=== PATIENT | female | born 1965 | race Caucasian/White ===

== ENCOUNTER → 2018-10-05 | Outpatient (CLI) | payer BC ==
[2018-10-05 15:17] LABS: Basophils # (auto) 0.1 uL; Basophils % (auto) 1.1 % (0.0-2.0); Eosinophils # (auto) 0.4 uL; Eosinophils % (auto) 4.6 % (0.0-7.0); Hematocrit 42.1 % (36.0-46.0); Hemoglobin 14.1 g/dL (12.2-16.2); Lymphocytes % (auto) 25.5 % (10.0-50.0); Mean Corpuscular Hemoglobin 30.7 pg (28.0-32.0); Mean Corpuscular Hgb Conc. 33.5 g/dL (32.0-36.0); Mean Corpuscular Volume 91.6 fL (80.0-100.0); Monocytes # (auto) 0.4 uL; Monocytes % (auto) 5.7 % (0.0-12.0); Neutrophils % (auto) 63.1 % (37.0-80.0); Platelet Count (auto) 317 10^3/uL (140-450); Red Blood Cells 4.59 10^6/uL (4.0-5.20); Red Cell Distribution Width 13.6 % (11.8-14.3); White Blood Cell 7.9 10^3/uL (4.4-10.8)
[2018-10-05 15:22] LABS: INR < 0.93 (0.9-1.15); Partial Thromboplastin Time 25.4 sec (23.64-32.05)
[2018-10-05 15:23] LABS: Urine Bacteria FEW /hpf (None Seen); Urine Blood Negative /uL (Negative); Urine Specific Gravity 1.006 (1.001-1.035); Urine WBC 1 /hpf (0 - 5)
[2018-10-05 15:25] LABS: Albumin 3.6 g/dL (3.4-5.0); Calcium 8.9 mg/dL (8.5-10.1); Potassium 3.4 mmol/L (3.5-5.1)
[2018-10-05 15:28] LABS: BUN/Creatinine Ratio 15.8; Bilirubin, Total 0.1 mg/dL (0.2-1.0)
[2018-10-06 07:45] LABS: Cholesterol 237 mg/dL (< 200); HDL Cholesterol 88 mg/dL (40-59); LDL Cholesterol 113 mg/dL (< 100); Triglycerides 167 mg/dL (< 150)
== END | disposition home or self-care (01) ==
LOC: LAB 14:37
PROVIDERS: ATTEND Internal Medicine Nephrology
DX: N39.0 Urinary tract infection, site not specified (principal); K92.1 Melena; N12 Tubulo-interstitial nephritis, not specified as acute or chronic
CPT/HCPCS: 36415; 80053; 80061; 81001; 84443; 85025; 85610; 85652; 85730; 87040; 87086

== ENCOUNTER 2018-10-12 20:14 | Inpatient (IN) | payer BC ==
[~2018-10-12] VITALS: Ht 162.6 cm; Wt 98.0 kg
[2018-10-12 21:22] LABS: Basophils # (auto) 0.1 uL; Basophils % (auto) 1.2 % (0.0-2.0); Eosinophils # (auto) 0.4 uL; Eosinophils % (auto) 5.9 % (0.0-7.0); Hematocrit 41.8 % (36.0-46.0); Hemoglobin 13.9 g/dL (12.2-16.2); Lymphocytes # (auto) 1.5 uL; Lymphocytes % (auto) 19.8 % (10.0-50.0); Mean Corpuscular Hemoglobin 30.6 pg (28.0-32.0); Mean Corpuscular Hgb Conc. 33.2 g/dL (32.0-36.0); Mean Corpuscular Volume 92.2 fL (80.0-100.0); Monocytes # (auto) 0.6 uL; Monocytes % (auto) 7.3 % (0.0-12.0); Neutrophils % (auto) 65.8 % (37.0-80.0); Platelet Count (auto) 308 10^3/uL (140-450); Red Blood Cells 4.53 10^6/uL (4.0-5.20); Red Cell Distribution Width 13.7 % (11.8-14.3); White Blood Cell 7.5 10^3/uL (4.4-10.8)
[2018-10-12 21:38] LABS: Albumin 3.4 g/dL (3.4-5.0); Amylase 43 U/L (25-115); Anion Gap 9 (5-15); Blood Urea Nitrogen 17 mg/dL (7-18); Calcium 8.8 mg/dL (8.5-10.1); Carbon Dioxide 26 mmol/L (21-32); Chloride 106 mmol/L (98-107); Glucose 129 mg/dL (74-106); Lipase 200 U/L (73-393); Magnesium 2.5 mg/dL (1.6-2.6); Potassium 3.7 mmol/L (3.5-5.1); Sodium 141 mmol/L (136-145)
[2018-10-12 21:45] LABS: Alanine Aminotransferase 18 U/L (13-56); Alkaline Phosphatase 82 U/L (45-117); Aspartate Aminotransferase 14 U/L (15-37); BUN/Creatinine Ratio 20.7; Bilirubin, Total 0.2 mg/dL (0.2-1.0); GFR African American 95 mL/min; GFR Non-African American 78 mL/min; Total Protein 7.7 g/dL (6.4-8.2)
[2018-10-12 21:53] LABS: INR 0.95 (0.9-1.15); Partial Thromboplastin Time 26.6 sec (23.64-32.05)
[2018-10-12 23:57] LABS: Urine Bacteria FEW /hpf (None Seen); Urine Blood Negative /uL (Negative); Urine Mucus FEW (None Seen); Urine Specific Gravity 1.031 (1.001-1.035); Urine WBC 1 /hpf (0 - 5)
[2018-10-13] MEDS ORDERED: HYDROcodone-ACET 5/325MG TAB PO PRN (00:30)
[2018-10-13] MEDS ORDERED: TEMAZEPAM 15 MG CAP PO PRN (00:30)
[2018-10-13] MEDS ORDERED: ACETAMINOPHEN 325 MG TAB PO PRN (00:30)
[2018-10-13] MEDS ORDERED: ONDANSETRON HCL 4 MG/2 ML VIAL IV PRN (00:30)
--- NOTE | 2018-10-13 00:55 | NUR ---
Admission Note Pt admitted to room 272-B in stable cond. Pt oriented to room and procedures and POC discussed with pt. Pt verbalizes understanding. Pt hx also taken at this time. Pt rates abd pain 2/10 at this time and states that she took Hydrocodone about 1900 10/12/18. Pt teaching done on medication policy and smoking policy and pt verbalizes understanding and is sending all meds, jewelry, and purse/wallet home with her mom. Bed is low, wheels are locked, and call light is with in reach.
[2018-10-13] MEDS ORDERED: cefTRIAXone 1GM/50ML D5W 50 ML IV ONE (02:15)
[2018-10-13] MEDS ORDERED: BUPR-40 PO (03:26)
[2018-10-13] MEDS ORDERED: TRAZ-220 PO (03:26)
[2018-10-13 05:00] VITALS: BP 108/38
--- NOTE | 2018-10-13 07:30 | NUR ---
Opening Note Received report from contract post office clerk RN. Patient is awake, alert and oriented x4. No signs or symptoms of distress noted at this time. Patient denies pain at this time. Patient is on room air, respirations even and unlabored. Reviewed plan of care with patient, patient verbalized understanding. Bed in low and locked position, call light within reach. Will continue to monitor Q1 hour and PRN.
[2018-10-13 08:39] VITALS: BP 110/66
--- NOTE | 2018-10-13 09:32 | NUR ---
Patient taken down for HIDA scan
[2018-10-13] MEDS ORDERED: FAMOTIDINE 20 MG TAB PO SCH (10:00)
[2018-10-13] MEDS ORDERED: D5W/SOD CHL 0.45% 1,000 ML IV SCH (12:15)
--- NOTE | 2018-10-13 12:15 | NUR ---
Spoke with Dr. Chapman New orders received to place patient on clear liquid diet after HIDA scan is complete today, NPO Tuesday after midnight, and surgery on Tuesday. Will implement new orders.
--- NOTE | 2018-10-13 12:25 | NUR ---
Patient taken back down for HIDA scan Was unable to complete HIDA scan this morning
[2018-10-13 12:43] VITALS: BP 93/58
--- NOTE | 2018-10-13 13:05 | NUR ---
patient back to room
[2018-10-13] MEDS ORDERED: LORATADINE 10 MG TAB PO ONE (14:30)
[2018-10-13 16:57] VITALS: BP 113/87
--- NOTE | 2018-10-13 18:00 | NUR ---
Paged Dr. Chapman regarding discharge order. Need to clarify if patient is ok to come in on as outpatient. Awaiting call back
--- NOTE | 2018-10-13 18:31 | NUR ---
Spoke with Dr. Morton Regarding patients discharge orders. Doctor states to discharge the patient today and surgery will be scheduled as outpatient for next week Tuesday or Tuesday.
[2018-10-13 19:06] VITALS: BP 110/66
--- NOTE | 2018-10-13 19:27 | NUR ---
Closing Note Report given to second shift supervisor RN. No signs or symptoms of distress noted at this time.
--- NOTE | 2018-10-13 19:50 | NUR ---
DC INSTRUCTIONS GIVEN IN WRITING AND VERBALLY. PT VERBALIZES UNDERSTANDING. PT DC'D HOME IN STABLE COND AT THIS TIME. PT'S MOM DRIVING HER HOME.
[2018-10-13] MEDS ORDERED: cefTRIAXone 1GM/50ML D5W 50 ML IV SCH (21:00)
== END 2018-10-13 19:50 | disposition home or self-care (01) | DRG 446 ==
LOC: ER 20:18 → OVERFLOW 20:19 → WEST WING 10-13 00:49
PROVIDERS: ADMIT Nurse Practitioner; ATTEND Internal Medicine Nephrology
DX: K80.00 Calculus of gallbladder with acute cholecystitis without obstruction (principal); E66.9 Obesity, unspecified; D25.9 Leiomyoma of uterus, unspecified; K57.90 Diverticulosis of intestine, part unspecified, without perforation or abscess without bleeding; Z68.37 Body mass index [BMI] 37.0-37.9, adult
CPT/HCPCS: 36415; 71045; 78226; 80053; 81001; 81025; 82150; 83690; 83735; 84484; 85025; 85610; 85730; G0378; J0696

== ENCOUNTER 2018-10-18 10:52 | Day surgery (SDC) | payer BC ==
[2018-10-17 11:59] LABS: Basophils # (auto) 0 uL; Basophils % (auto) 0.6 % (0.0-2.0); Eosinophils # (auto) 0.4 uL; Eosinophils % (auto) 5.9 % (0.0-7.0); Hematocrit 41.3 % (36.0-46.0); Hemoglobin 13.7 g/dL (12.2-16.2); Lymphocytes # (auto) 1.5 uL; Lymphocytes % (auto) 20.4 % (10.0-50.0); Mean Corpuscular Hemoglobin 30.5 pg (28.0-32.0); Mean Corpuscular Hgb Conc. 33.1 g/dL (32.0-36.0); Mean Corpuscular Volume 91.9 fL (80.0-100.0); Monocytes # (auto) 0.6 uL; Monocytes % (auto) 7.4 % (0.0-12.0); Neutrophils # (auto) 4.9 uL; Neutrophils % (auto) 65.7 % (37.0-80.0); Platelet Count (auto) 331 10^3/uL (140-450); Red Blood Cells 4.49 10^6/uL (4.0-5.20); Red Cell Distribution Width 13.5 % (11.8-14.3); White Blood Cell 7.5 10^3/uL (4.4-10.8)
[2018-10-17 12:06] LABS: Urine Bacteria NONE SEEN /hpf (None Seen); Urine Blood Negative /uL (Negative); Urine Specific Gravity 1.014 (1.001-1.035); Urine WBC 1 /hpf (0 - 5)
[2018-10-17 12:33] LABS: Albumin 3.5 g/dL (3.4-5.0); Calcium 8.8 mg/dL (8.5-10.1); Potassium 3.9 mmol/L (3.5-5.1)
[2018-10-17 12:36] LABS: BUN/Creatinine Ratio 12.8; Bilirubin, Total 0.3 mg/dL (0.2-1.0); Total Protein 7.9 g/dL (6.4-8.2)
[~2018-10-18] VITALS: Ht 162.6 cm; Wt 92.1 kg
[~2018-10-18 10:52] MED LIST: BUPR-40 PO; TRAZ-220 PO
[2018-10-18] MEDS ORDERED: POVIDONE IODINE 5% TOPICAL CREAM TOP ONE (11:55)
[2018-10-18] MEDS ORDERED: ceFAZolin 1GM/50ML 50 ML IV ONE (11:56)
[2018-10-18] MEDS ORDERED: LIDOCAINE 1% (LOCAL ANESTH.) PF 5ml SDV ONE (12:20)
[2018-10-18] MEDS ORDERED: SUCCINYLCHOLINE CHLORIDE 20 MG/ML 10ML VIAL IV ONE (12:20)
[2018-10-18] MEDS ORDERED: MIDAZOLAM HCL 1MG/1ML-2 ML VIAL ONE (12:21)
[2018-10-18] MEDS ORDERED: PROPOFOL 10 MG/ML 20 ML IV ONE (12:22)
[2018-10-18] MEDS ORDERED: METOCLOPRAMIDE HCL 5MG/ml INJ 2ml VIAL ONE (12:22)
[2018-10-18] MEDS ORDERED: ROCURONIUM 10MG/ML 10ML VIAL IV ONE (12:23)
[2018-10-18] MEDS ORDERED: fentaNYL CITRATE 100 MCG/2 ML VL ONE (12:31)
[2018-10-18] MEDS ORDERED: NALOXONE HCL 0.4 MG/ML VIAL IV PRN (12:45)
[2018-10-18] MEDS ORDERED: HYDROmorphone HCL 2 MG/ML VL IV PRN ×3 (12:45→13:30)
[2018-10-18] MEDS ORDERED: ONDANSETRON HCL 4 MG/2 ML VIAL IV PRN (12:45)
[2018-10-18] MEDS ORDERED: DexAMETHasone SOD PHOS 10MG/1ML VIAL INJ ONE (12:55)
[2018-10-18] MEDS ORDERED: NEOSTIGMINE 1 MG/ML INJ (10mg/10ML VIAL) ONE (13:08)
[2018-10-18] MEDS ORDERED: GLYCOPYRROLATE 0.2 MG/ML 1ML VIAL ONE (13:08)
== END 2018-10-18 15:25 | disposition home or self-care (01) ==
LOC: SUR 10:52
PROVIDERS: ATTEND Surgery
DX: K80.10 Calculus of gallbladder with chronic cholecystitis without obstruction (principal); I10 Essential (primary) hypertension; J44.9 Chronic obstructive pulmonary disease, unspecified; K21.9 Gastro-esophageal reflux disease without esophagitis; F32.9 Major depressive disorder, single episode, unspecified; G47.33 Obstructive sleep apnea (adult) (pediatric); E66.8 Other obesity; F17.210 Nicotine dependence, cigarettes, uncomplicated; Z68.35 Body mass index [BMI] 35.0-35.9, adult; Z79.899 Other long term (current) drug therapy; Z87.59 Personal history of other complications of pregnancy, childbirth and the puerperium; Z98.890 Other specified postprocedural states
CPT/HCPCS: 36415; 47562; 80053; 81001; 85025; 85610; 85730; 88304; 93005; C1769; J0330; J0690; J1100; J1170; J2250; J2405; J2704; J2765; J3010; J3590; J7030

== ENCOUNTER 2018-10-29 06:28 | Inpatient (IN) | payer BC ==
[~2018-10-29] VITALS: Ht 162.6 cm; Wt 89.3 kg
[2018-10-29] MEDS ORDERED: SODIUM CHLORIDE 0.9% 1,000 ML IV ONE (10:27)
[2018-10-29] MEDS ORDERED: PROMETHAZINE HCL 25 MG/ML 1ML IV PRN ×2 (10:30→12:30)
[2018-10-29] MEDS ORDERED: MORPHINE SULFATE 4 MG/ML SYR/VIAL IV ONE (10:30)
[2018-10-29 10:44] LABS: Basophils # (auto) 0.1 uL; Basophils % (auto) 1.2 % (0.0-2.0); Eosinophils # (auto) 0.4 uL; Eosinophils % (auto) 4.6 % (0.0-7.0); Hematocrit 42.3 % (36.0-46.0); Hemoglobin 14.3 g/dL (12.2-16.2); Lymphocytes # (auto) 1.6 uL; Lymphocytes % (auto) 18.6 % (10.0-50.0); Mean Corpuscular Hemoglobin 30.8 pg (28.0-32.0); Mean Corpuscular Hgb Conc. 33.9 g/dL (32.0-36.0); Monocytes # (auto) 0.5 uL; Monocytes % (auto) 5.9 % (0.0-12.0); Neutrophils % (auto) 69.7 % (37.0-80.0); Nucleated Red Blood Cells % 0.1 %; Platelet Count (auto) 352 10^3/uL (140-450); Red Blood Cells 4.65 10^6/uL (4.0-5.20); Red Cell Distribution Width 13.4 % (11.8-14.3); White Blood Cell 8.6 10^3/uL (4.4-10.8)
[2018-10-29] MEDS ORDERED: cefTRIAXone 1GM/50ML D5W 50 ML IV ONE ×2 (10:45→12:30)
[2018-10-29 11:00] LABS: Albumin 3.7 g/dL (3.4-5.0); Calcium 9.4 mg/dL (8.5-10.1); INR < 0.93 (0.9-1.15); Magnesium 2.4 mg/dL (1.6-2.6); Partial Thromboplastin Time 26.5 sec (23.64-32.05)
[2018-10-29 11:03] LABS: BUN/Creatinine Ratio 13.6; Bilirubin, Total 0.4 mg/dL (0.2-1.0); Total Protein 7.9 g/dL (6.4-8.2)
[2018-10-29] MEDS ORDERED: MORPHINE SULFATE 4 MG/ML SYR/VIAL IV PRN (12:30)
[2018-10-29] MEDS ORDERED: ACETAMINOPHEN 500 MG TAB PO PRN (12:30)
[2018-10-29] MEDS: SODIUM CHLORIDE 0.9% 1,000 ML IV SCH ×2 (12:33→21:06)
--- NOTE | 2018-10-29 13:09 | NUR ---
RECEIVED REPORT FROM DELANO JOHNSON IN ER. WILL AWAIT PATIENT.
--- NOTE | 2018-10-29 13:50 | NUR ---
RECEIVED CALL FROM PACU RECEIVED CALL FROM MICHAEL JOHNSON TO HAVE PATIENT READY FOR O.R PER MY ORDERS I TOLD MICHAEL I HAVE NOTHING STATING OBTAIN CONSENT FOR A SPECIFIC PROCEDURE, SHE WILL LET DR MIMS KNOW.
--- NOTE | 2018-10-29 13:55 | NUR ---
[facility] CONSENTS PER [facility] PACU WILL PLACE ORDERS FOR PROCEDURE ONCE DONE I CAN PRINT OUT CONSENTS AND HAVE ONLY CHECK LIST DONE PATIENT HAS NOT SEEN DR MIMS OR HAD PROCEDURE EXPLAINED TO HER. THIS NURSE VERBALLY AGREED AND WILL HAVE CONSENTS SIGNED. NOTIFIED [facility] THAT PATIENT HAS JUST BEEN RECEIVED TO FLOOR AND HAD BEEN IN THE ROOM AT THE TIME PACU CALLED. I WAS NOT AWARE OF ANYTHING GOING ON WITH PATIENT. WILL LOOK INTO ORDERS AND PRINT OUT PAPER WORK NECESSARY ONCE ORDERS ARE RECEIVED. CHARGE NURSE REYNOLD NOTIFIED.
[2018-10-29] MEDS ORDERED: metroNIDAZOLE 500MG/100ML 100 ML IV SCH (14:00)
--- NOTE | 2018-10-29 14:01 | NUR ---
RECEIVED PATIENT TO THE FLOOR. AWAKE ALERT AND ORIENTED, PATIENT AMBULATORY. BED LOCKED IN LOWEST POSITION WITH TWO SIDE RAILS UP AND CALL LIGHT IN REACH. EDUCATED PATIENT ON THE PLAN OF CARE. WILL CONTINUE TO MONITOR.
--- NOTE | 2018-10-29 14:18 | NUR ---
PATIENT TAKEN DOWN TO OR PER HOUSE SUP [facility] OR IS READY FOR PATIENT NOW, I TOLD [facility] WILL HAVE PATIENT DOWN JUST FINISHING UP CHECK LIST.
[2018-10-29] MEDS ORDERED: ACET-1603 PO (14:19)
[2018-10-29] MEDS ORDERED: TRAZ100T2 PO (14:19)
[2018-10-29] MEDS ORDERED: LIDOCAINE 1% (LOCAL ANESTH.) PF 5ml SDV ONE (14:54)
[2018-10-29] MEDS ORDERED: SUCCINYLCHOLINE CHLORIDE 20 MG/ML 10ML VIAL IV ONE (14:54)
[2018-10-29] MEDS ORDERED: ceFAZolin 1GM/50ML 50 ML IV ONE (14:56)
[2018-10-29] MEDS ORDERED: POVIDONE IODINE 5% TOPICAL CREAM TOP ONE (15:01)
[2018-10-29] MEDS ORDERED: NALOXONE HCL 0.4 MG/ML VIAL IV PRN (15:30)
[2018-10-29] MEDS ORDERED: ONDANSETRON HCL 4 MG/2 ML VIAL IV PRN (15:30)
[2018-10-29] MEDS ORDERED: HYDROmorphone HCL 2 MG/ML VL IV PRN ×2 (15:30)
--- NOTE | 2018-10-29 16:15 | NUR ---
RECEIVED REPORT FROM MICHAEL JOHNSON IN PACU WILL AWAIT PATIENT.
--- NOTE | 2018-10-29 16:20 | NUR ---
RECEIVED PATIENT TO THE FLOOR. PATIENT AWAKE AND ALERT, DRESSINGS CLEAN DRY AND INTACT X3 EDUCATED PATIENT ON THE PLAN OF CARE AND THE ADVANCE DIET TOLERATED. NOTIFIED PATIENT WE CAN START WITH ICE CHIPS FIRST THEN ADVANCE TOLERATED. PER PATIENT SHE DOES NOT WANT ANYTHING AT THIS TIME.
--- NOTE | 2018-10-29 16:42 | NUR ---
MEDICATION ADMINISTERING MEDICATION CLEOCIN LATE, PATIENT NOT ON THE FLOOR WENT DOWN TO OR. MEDICATION WAS NOT GIVEN IN ER.
[2018-10-29] MEDS: CLINDAMYCIN 600MG IV 50 ML IV SCH ×2 (17:36→21:04)
--- NOTE | 2018-10-29 19:14 | NUR ---
Report given to DAMARI JOHNSON.
[2018-10-29] MEDS: FAMOTIDINE 20 MG TAB PO SCH (21:05)
[2018-10-29] MEDS: traMADol HCL 50 MG TAB PO PRN (21:18)
[2018-10-29 22:00] VITALS: BP 111/64
[2018-10-30 05:05] VITALS: BP 103/67
[2018-10-30] MEDS: traMADol HCL 50 MG TAB PO PRN (05:50)
[2018-10-30] MEDS: CLINDAMYCIN 600MG IV 50 ML IV SCH ×2 (05:50→15:30)
[2018-10-30 07:14] LABS: Albumin 3.2 g/dL (3.4-5.0); BUN/Creatinine Ratio 11.1; Calcium 8.6 mg/dL (8.5-10.1); Potassium 4.3 mmol/L (3.5-5.1)
[2018-10-30 07:17] LABS: Bilirubin, Total 0.6 mg/dL (0.2-1.0); Total Protein 6.9 g/dL (6.4-8.2)
--- NOTE | 2018-10-30 07:45 | NUR ---
OPENING NOTE OBSERVED PT RESTING IN BED. NO SOB/DISTRESS NOTED. PT DENIES ANY PAIN AT THIS TIME. PT UPDATED ON POC AND PT VERBALIZED UNDERSTANDING. CALL LIGHT WITHIN REACH. FALL PRECAUTIONS IN PLACE. WILL CONTINUE TO MONITOR Q1H AND PRN. CONTINUE PT CARE.
[2018-10-30 08:00] VITALS: BP 103/61
[2018-10-30] MEDS ORDERED: cefTRIAXone 1GM/50ML D5W 50 ML IV SCH (09:00)
[2018-10-30] MEDS: FAMOTIDINE 20 MG TAB PO SCH (09:17)
[2018-10-30] MEDS: SODIUM CHLORIDE 0.9% 1,000 ML IV SCH (09:17)
[2018-10-30] MEDS ORDERED: LEVOFLOXACIN 500MG 100 ML IV SCH (10:00)
--- NOTE | 2018-10-30 11:32 | NUR ---
PAGED DR. MIMS PAGED RE: DR. MARTINEZ REQUEST FOR CLEARANCE TO [facility]. WAITING ENGINE ROOM HELPER BACK.
[2018-10-30 13:10] VITALS: BP_SYST 11; BP_SYST 111; BP_DIAS 65
--- NOTE | 2018-10-30 14:10 | NUR ---
CXR PATIENT BECOMING IMPATIENT R/T PENDING CXR. CONTACTED RADIOLOGY TO CHECK ON STATUS, AWARE OF ORDER. PATIENT INFORMED AND VERBALIZED UNDERSTANDING.
--- NOTE | 2018-10-30 14:32 | NUR ---
SPOKE TO MD RECEIVED PHONE CALL FROM DR. MCGEE. PER , PT OK TO BE DC'D HOME LONG CXR IS NEGATIVE. WILL CARRY OUT.
--- NOTE | 2018-10-30 16:14 | NUR ---
SPOKE TO SPOKE TO DR. MARTINEZ REGARDING CXR REPORT. PT CLEARED FOR DC. PT REQUESTING OFF WORK NOTE UNTIL 11/06/18. STATING OKAY TO FILL OUT OFF WORK FORM. Addendum: 10/30/18 at 1626 by Fern Johansen RN RN OFF WORK NOTE UNTIL 11/08/18.
--- NOTE | 2018-10-30 16:26 | NUR ---
FOLLOW UP DR. MARTINEZ REQUESTING 1 WEEK F/U WITH DR. MIMS. APPT MADE FOR 11/07/18 AT 10:15. PT INFORMED AND PROVIDED WITH ADDRESS AND CONTACT INFORMATION.
--- NOTE | 2018-10-30 16:27 | NUR ---
Discharge instructions given as ordered. Encourage to follow up with PMD as instructed. All questions and concerns addressed. Patient verbalized understanding. Medication reconciliation form completed and copy given to patient. IV removed with catheter intact, pressure dressing applied. Patient ambulated off unit with all personal belongings, accompanied by family member. No distress noted at time of departure.
== END 2018-10-30 16:27 | disposition home or self-care (01) | DRG 908 ==
LOC: ER 06:28 → OVERFLOW 06:29 → WEST WING 13:36
PROVIDERS: ADMIT Internal Medicine; ATTEND Internal Medicine Nephrology
PROC: 0WP Anatomical Regions, General, Removal (ICD-10-PCS; principal; 2018-10-29 15:00)
DX: S31.12 Laceration with foreign body of abdominal wall without penetration into peritoneal cavity (principal); T85.628A Displacement of other specified internal prosthetic devices, implants and grafts, initial encounter; F17.210 Nicotine dependence, cigarettes, uncomplicated; I10 Essential (primary) hypertension; E66.01 Morbid (severe) obesity due to excess calories; K57.30 Diverticulosis of large intestine without perforation or abscess without bleeding; F32.9 Major depressive disorder, single episode, unspecified; X58.XXXA Exposure to other specified factors, initial encounter; N20.0 Calculus of kidney; K21.9 Gastro-esophageal reflux disease without esophagitis; M19.90 Unspecified osteoarthritis, unspecified site; Z80.3 Family history of malignant neoplasm of breast; Z90.49 Acquired absence of other specified parts of digestive tract; Z98.84 Bariatric surgery status; Y93.89 Activity, other specified; Y92.89 Other specified places as the place of occurrence of the external cause; Y99.8 Other external cause status; Z68.33 Body mass index [BMI] 33.0-33.9, adult; Z79.899 Other long term (current) drug therapy
CPT/HCPCS: 36415; 71046; 74176; 80053; 83690; 83735; 84702; 85025; 85610; 85730; 86850; 86900; 86901; 87081; 93005; G0378; J0330; J0690; J0696; J1956; J3490

== ENCOUNTER → 2020-02-19 | Outpatient (CLI) | payer BC ==
[~2020-02-19] MED LIST changes: -BUPR-40 PO; -TRAZ-220 PO; +TRAZ100T3 PO
[2020-02-19 09:12] LABS: Basophils # (auto) 0.1 10 ^3/uL (0-0.2); Eosinophils # (auto) 0.3 10 ^3/uL (0-0.8); Eosinophils % (auto) 4.5 % (0.0-7.0); Hemoglobin 14.2 g/dL (12.2-16.2); Lymphocytes # (auto) 1.6 10 ^3/uL (0.4-5.4); Lymphocytes % (auto) 24.4 % (10.0-50.0); Mean Corpuscular Hemoglobin 31.6 pg (28.0-32.0); Mean Corpuscular Hgb Conc. 33.9 g/dL (32.0-36.0); Mean Corpuscular Volume 93.2 fL (80.0-100.0); Monocytes # (auto) 0.6 10 ^3/uL (0-1.3); Monocytes % (auto) 9.2 % (0.0-12.0); Neutrophils % (auto) 60.9 % (37.0-80.0); Nucleated Red Blood Cells % 0.1 %; Platelet Count (auto) 303 10^3/uL (140-450); Red Blood Cells 4.51 10^6/uL (4.0-5.20); Red Cell Distribution Width 13.6 % (11.8-14.3); White Blood Cell 6.6 10^3/uL (4.4-10.8)
[2020-02-19 09:31] LABS: Potassium 4.2 mmol/L (3.5-5.1)
[2020-02-19 10:32] LABS: Albumin 3.4 g/dL (3.4-5.0); Bilirubin, Total 0.4 mg/dL (0.2-1.0); Calcium 8.8 mg/dL (8.5-10.1); Total Protein 7.2 g/dL (6.4-8.2)
== END | disposition home or self-care (01) ==
LOC: LAB 08:49
PROVIDERS: ATTEND Physician Assistant
DX: E66.01 Morbid (severe) obesity due to excess calories (principal); I45.10 Unspecified right bundle-branch block; F32.9 Major depressive disorder, single episode, unspecified; K21.9 Gastro-esophageal reflux disease without esophagitis; R30.0 Dysuria
CPT/HCPCS: 36415; 80053; 80061; 85025

== ENCOUNTER → 2020-02-27 | Outpatient (CLI) | payer BC | END | disposition home or self-care (01) | LOC: LAB 07:30 | PROVIDERS: ATTEND Physician Assistant | DX: Z20.828 Contact with and (suspected) exposure to other viral communicable diseases (principal) | CPT/HCPCS: C9803; U0003 ==

== ENCOUNTER 2020-05-19 12:09 | Day surgery (SDC) | payer BC ==
[2020-05-15 14:33] LABS: Urine WBC None Seen /hpf (0 - 5)
[2020-05-15 14:48] LABS: Basophils # (auto) 0.1 10 ^3/uL (0-0.2); Basophils % (auto) 0.9 % (0.0-2.0); Eosinophils # (auto) 0.5 10 ^3/uL (0-0.8); Eosinophils % (auto) 7.3 % (0.0-7.0); Hematocrit 41.4 % (36.0-46.0); Hemoglobin 14.1 g/dL (12.2-16.2); Lymphocytes # (auto) 1.6 10 ^3/uL (0.4-5.4); Lymphocytes % (auto) 23.3 % (10.0-50.0); Mean Corpuscular Hemoglobin 32.1 pg (28.0-32.0); Mean Corpuscular Hgb Conc. 34.1 g/dL (32.0-36.0); Monocytes # (auto) 0.6 10 ^3/uL (0-1.3); Neutrophils # (auto) 4.2 10 ^3/uL (1.6-8.6); Neutrophils % (auto) 60.5 % (37.0-80.0); Nucleated Red Blood Cells % 0.1 %; Red Cell Distribution Width 14.9 % (11.8-14.3); White Blood Cell 6.9 10^3/uL (4.4-10.8)
[2020-05-15 14:49] LABS: Urine Bacteria NONE SEEN /hpf (None Seen); Urine Blood Negative /uL (Negative); Urine Specific Gravity 1.021 (1.001-1.035)
[2020-05-15 15:02] LABS: INR 0.91 (0.9-1.15); Partial Thromboplastin Time 25.8 sec (23.0-31.2)
[2020-05-15 15:03] LABS: Potassium 3.7 mmol/L (3.5-5.1)
[2020-05-15 15:10] LABS: Albumin 3.8 g/dL (3.4-5.0); BUN/Creatinine Ratio 25.5; Bilirubin, Total 0.3 mg/dL (0.2-1.0); Calcium 9.1 mg/dL (8.5-10.1); Total Protein 7.9 g/dL (6.4-8.2)
[~2020-05-19] VITALS: Ht 162.6 cm; Wt 88.0 kg
[~2020-05-19 12:09] MED LIST changes: +OMEP20TA PO; +PAR20T GT; +PARO-135 PO
[2020-05-19] MEDS ORDERED: ceFAZolin 1GM/50ML 100 ML IV ONE (12:55)
[2020-05-19] MEDS ORDERED: MIDAZOLAM HCL 2MG/2ML 2ml VIAL (1mg/ml) ONE (12:59)
[2020-05-19] MEDS ORDERED: LIDOCAINE 1% HCL (LOCAL ANESTH.) INJ 20ML MDV ONE (13:02)
[2020-05-19] MEDS ORDERED: fentaNYL CITRATE 100 MCG/2 ML VL ONE (13:03)
[2020-05-19] MEDS ORDERED: GLYCOPYRROLATE 0.2 MG/ML 1ML VIAL ONE (13:04)
[2020-05-19] MEDS ORDERED: PROPOFOL 10 MG/ML 20 ML IV ONE (13:04)
[2020-05-19] MEDS ORDERED: LIDOCAINE 2% (LOCAL ANESTH.) PF 5ml SDV ONE (13:04)
[2020-05-19] MEDS ORDERED: DexAMETHasone SOD PHOS 10MG/1ML VIAL INJ ONE (13:04)
[2020-05-19] MEDS ORDERED: ONDANSETRON HCL 4 MG/2 ML VIAL ONE (13:04)
[2020-05-19] MEDS ORDERED: KETOROLAC TROMETH 30 MG/ML 1ML VIAL ONE (13:04)
[2020-05-19] MEDS ORDERED: MEPERIDINE HCL (50 MG/ML) 1 ML VIAL ONE (13:17)
[2020-05-19] MEDS ORDERED: ONDANSETRON HCL 4 MG/2 ML VIAL IV PRN (14:00)
[2020-05-19] MEDS ORDERED: HYDROmorphone HCL 2 MG/ML VL IV PRN (14:00)
[2020-05-19 14:05] VITALS: BP 145/90
== END 2020-05-19 14:30 | disposition home or self-care (01) ==
LOC: SUR 12:09
PROVIDERS: ATTEND Orthopaedic Surgery Adult Reconstructive Orthopaedic Surgery
DX: S62.622A Displaced fracture of middle phalanx of right middle finger, initial encounter for closed fracture (principal); S62.639A Displaced fracture of distal phalanx of unspecified finger, initial encounter for closed fracture; M79.644 Pain in right finger(s); I10 Essential (primary) hypertension; K21.9 Gastro-esophageal reflux disease without esophagitis; E66.9 Obesity, unspecified; F41.9 Anxiety disorder, unspecified; J84.10 Pulmonary fibrosis, unspecified; D21.9 Benign neoplasm of connective and other soft tissue, unspecified; F32.9 Major depressive disorder, single episode, unspecified; F99 Mental disorder, not otherwise specified; Z80.0 Family history of malignant neoplasm of digestive organs; Z20.822 Contact with and (suspected) exposure to COVID-19; Z98.890 Other specified postprocedural states; Z79.899 Other long term (current) drug therapy; Z68.33 Body mass index [BMI] 33.0-33.9, adult; Z80.3 Family history of malignant neoplasm of breast; X58.XXXA Exposure to other specified factors, initial encounter; Y93.89 Activity, other specified; Y92.89 Other specified places as the place of occurrence of the external cause; Y99.8 Other external cause status
CPT/HCPCS: 26432; 36415; 73140; 80053; 81001; 85025; 85610; 85730; C1713; J0690; J1100; J1885; J2001; J2175; J2250; J2405; J2704; J3010; U0003; 76000

== ENCOUNTER 2020-07-11 11:38 | Day surgery (SDC) | payer BC, OTHER ==
[2020-07-08 15:18] LABS: Basophils # (auto) 0.1 10 ^3/uL (0-0.2); Basophils % (auto) 1.2 % (0.0-2.0); Eosinophils # (auto) 0.4 10 ^3/uL (0-0.8); Eosinophils % (auto) 5.2 % (0.0-7.0); Hematocrit 42.1 % (36.0-46.0); Hemoglobin 14.5 g/dL (12.2-16.2); Lymphocytes # (auto) 1.8 10 ^3/uL (0.4-5.4); Lymphocytes % (auto) 22.1 % (10.0-50.0); Mean Corpuscular Hemoglobin 33.1 pg (28.0-32.0); Mean Corpuscular Hgb Conc. 34.4 g/dL (32.0-36.0); Mean Corpuscular Volume 96.3 fL (80.0-100.0); Monocytes # (auto) 0.7 10 ^3/uL (0-1.3); Monocytes % (auto) 9.1 % (0.0-12.0); Neutrophils # (auto) 5.1 10 ^3/uL (1.6-8.6); Neutrophils % (auto) 62.4 % (37.0-80.0); Platelet Count (auto) 295 10^3/uL (140-450); Red Blood Cells 4.37 10^6/uL (4.0-5.20); Red Cell Distribution Width 14.2 % (11.8-14.3); White Blood Cell 8.2 10^3/uL (4.4-10.8)
[2020-07-08 15:29] LABS: INR 0.93 (0.9-1.15); Partial Thromboplastin Time 25.9 sec (23.0-31.2)
[2020-07-08 15:37] LABS: Albumin 3.7 g/dL (3.4-5.0); Calcium 9.1 mg/dL (8.5-10.1); Potassium 3.9 mmol/L (3.5-5.1)
[2020-07-08 15:41] LABS: BUN/Creatinine Ratio 19.1; Bilirubin, Total 0.3 mg/dL (0.2-1.0); Total Protein 8.2 g/dL (6.4-8.2)
[~2020-07-11] VITALS: Ht 162.6 cm; Wt 88.9 kg
[~2020-07-11 11:38] MED LIST changes: -PAR20T GT
[2020-07-11] MEDS ORDERED: SODIUM CHLORIDE LOCK 10 ML ONE (13:05)
[2020-07-11] MEDS: fentaNYL CITRATE 100 MCG/2 ML VL ONE ×2 (14:08→14:14)
[2020-07-11] MEDS: MIDAZOLAM HCL 5 MG/ML-1ML VIAL ONE ×3 (14:08→14:15)
[2020-07-11] MEDS: diphenhdrAMINE HCL 50 MG/1 ML VL ONE ×2 (14:09→14:12)
[2020-07-11 14:30] VITALS: BP 128/62
== END 2020-07-11 15:20 | disposition home or self-care (01) ==
LOC: GI 11:38
PROVIDERS: ATTEND Internal Medicine Gastroenterology
DX: K62.5 Hemorrhage of anus and rectum (principal); D12.2 Benign neoplasm of ascending colon; K63.5 Polyp of colon; K57.30 Diverticulosis of large intestine without perforation or abscess without bleeding; K64.8 Other hemorrhoids; K63.89 Other specified diseases of intestine; K52.89 Other specified noninfective gastroenteritis and colitis; J84.10 Pulmonary fibrosis, unspecified; F41.9 Anxiety disorder, unspecified; F32.9 Major depressive disorder, single episode, unspecified; F99 Mental disorder, not otherwise specified; Z20.822 Contact with and (suspected) exposure to COVID-19; Z68.33 Body mass index [BMI] 33.0-33.9, adult
CPT/HCPCS: 36415; 45385; 80053; 85025; 85610; 85730; 88305; J1200; J2250; J3010; J7030; U0003; 99152

== ENCOUNTER → 2020-09-02 | Outpatient (CLI) | payer BC, OTHER ==
[2020-09-02 09:00] VITALS: BP 131/71
== END | disposition home or self-care (01) ==
LOC: XY 07:22
PROVIDERS: ATTEND Internal Medicine
DX: R94.31 Abnormal electrocardiogram [ECG] [EKG] (principal)
CPT/HCPCS: 78452; 93017; A9500

== ENCOUNTER → 2020-10-06 | Outpatient (CLI) | payer BC, OTHER ==
[2020-10-06 09:22] LABS: Basophils # (auto) 0.1 10 ^3/uL (0-0.2); Basophils % (auto) 0.8 % (0.0-2.0); Eosinophils # (auto) 0.3 10 ^3/uL (0-0.8); Eosinophils % (auto) 4.1 % (0.0-7.0); Hematocrit 41.1 % (36.0-46.0); Lymphocytes # (auto) 1.7 10 ^3/uL (0.4-5.4); Mean Corpuscular Hemoglobin 31.8 pg (28.0-32.0); Mean Corpuscular Volume 93.3 fL (80.0-100.0); Monocytes # (auto) 0.5 10 ^3/uL (0-1.3); Monocytes % (auto) 6.9 % (0.0-12.0); Neutrophils # (auto) 4.8 10 ^3/uL (1.6-8.6); Neutrophils % (auto) 65.2 % (37.0-80.0); Red Cell Distribution Width 14.3 % (11.8-14.3); White Blood Cell 7.4 10^3/uL (4.4-10.8)
[2020-10-06 09:44] LABS: INR 0.94 (0.9-1.15); Partial Thromboplastin Time 24.5 sec (23.6-33.0)
[2020-10-06 09:56] LABS: Albumin 3.5 g/dL (3.4-5.0); BUN/Creatinine Ratio 21.8; Calcium 8.3 mg/dL (8.5-10.1); Potassium 4.4 mmol/L (3.5-5.1)
[2020-10-06 09:59] LABS: Bilirubin, Total 0.2 mg/dL (0.2-1.0); Total Protein 7.4 g/dL (6.4-8.2)
== END | disposition home or self-care (01) ==
LOC: LAB 09:10
PROVIDERS: ATTEND Internal Medicine
DX: Z01.812 Encounter for preprocedural laboratory examination (principal)
CPT/HCPCS: 36415; 80053; 85025; 85610; 85730

== ENCOUNTER 2020-10-08 09:08 | Day surgery (SDC) | payer BC, OTHER ==
[~2020-10-08] VITALS: Ht 162.6 cm; Wt 89.8 kg
[2020-10-08] MEDS ORDERED: LIDOCAINE 2%HCL (LOCAL ANESTH.) INJ 20ML MDV ONE (10:44)
[2020-10-08] MEDS ORDERED: HEPARIN SODIUM (PORCINE) 5000 UNITS/ML 1ML VIAL ONE (10:52)
[2020-10-08] MEDS ORDERED: VERAPAMIL 2.5MG/ML INJ 2ML VIAL IV ONE (10:52)
[2020-10-08] MEDS ORDERED: ANGIOMAX 250 MG VIAL IV ONE (10:52)
[2020-10-08] MEDS ORDERED: IODIXANOL 320MG/ML 100ML BTL IV ONE (10:53)
[2020-10-08] MEDS ORDERED: MIDAZOLAM HCL 2MG/2ML 2ml VIAL (1mg/ml) ONE ×2 (10:53→11:21)
[2020-10-08] MEDS ORDERED: fentaNYL CITRATE 100 MCG/2 ML VL ONE (10:53)
[2020-10-08] MEDS ORDERED: SODIUM CHL 0.9% 0 ML ONE (10:53)
[2020-10-08] MEDS ORDERED: diphenhdrAMINE HCL 50 MG/1 ML VL ONE (11:16)
[2020-10-08] MEDS ORDERED: ONDANSETRON HCL 4 MG/2 ML VIAL IV PRN (11:45)
[2020-10-08] MEDS ORDERED: ACETAMINOPHEN 500 MG TAB PO PRN (11:45)
[2020-10-08] MEDS ORDERED: HYDROcodone-ACET 5/325MG TAB PO PRN (11:45)
== END 2020-10-08 13:59 | disposition home or self-care (01) ==
LOC: CATH 09:08
PROVIDERS: ATTEND Internal Medicine
DX: R94.39 Abnormal result of other cardiovascular function study (principal); J98.4 Other disorders of lung; F99 Mental disorder, not otherwise specified; F32.9 Major depressive disorder, single episode, unspecified; F41.9 Anxiety disorder, unspecified; F17.210 Nicotine dependence, cigarettes, uncomplicated; Z80.0 Family history of malignant neoplasm of digestive organs; Z20.822 Contact with and (suspected) exposure to COVID-19; Z79.899 Other long term (current) drug therapy; Z98.890 Other specified postprocedural states; Z68.34 Body mass index [BMI] 34.0-34.9, adult
CPT/HCPCS: 93458; C1887; C1894; J1200; J1644; J2250; J3010; J7030; Q9967; U0003; 99152

== ENCOUNTER → 2021-02-05 | Outpatient (CLI) | payer OTHER, BC ==
[2021-02-05 12:54] LABS: Basophils # (auto) 0.1 10 ^3/uL (0-0.2); Basophils % (auto) 0.7 % (0.0-2.0); Eosinophils # (auto) 0.2 10 ^3/uL (0-0.8); Eosinophils % (auto) 2.6 % (0.0-7.0); Hematocrit 45.4 % (36.0-46.0); Hemoglobin 15.2 g/dL (12.2-16.2); Lymphocytes # (auto) 1.7 10 ^3/uL (0.4-5.4); Lymphocytes % (auto) 17.3 % (10.0-50.0); Mean Corpuscular Hemoglobin 30.8 pg (28.0-32.0); Mean Corpuscular Hgb Conc. 33.5 g/dL (32.0-36.0); Monocytes # (auto) 0.7 10 ^3/uL (0-1.3); Monocytes % (auto) 7.1 % (0.0-12.0); Neutrophils # (auto) 6.9 10 ^3/uL (1.6-8.6); Neutrophils % (auto) 72.3 % (37.0-80.0); Nucleated Red Blood Cells % 0.1 %; Red Blood Cells 4.93 10^6/uL (4.0-5.20); Red Cell Distribution Width 13.9 % (11.8-14.3); White Blood Cell 9.5 10^3/uL (4.4-10.8)
[2021-02-05 13:36] LABS: Albumin 3.8 g/dL (3.4-5.0); Calcium 9.6 mg/dL (8.5-10.1)
[2021-02-05 13:42] LABS: BUN/Creatinine Ratio 15.5; Bilirubin, Total 0.3 mg/dL (0.2-1.0); Total Protein 7.6 g/dL (6.4-8.2)
== END | disposition home or self-care (01) ==
LOC: LAB 12:35
PROVIDERS: ATTEND Nurse Practitioner Family
DX: Z00.01 Encounter for general adult medical examination with abnormal findings (principal); I42.6 Alcoholic cardiomyopathy; F41.9 Anxiety disorder, unspecified; F10.10 Alcohol abuse, uncomplicated; E78.5 Hyperlipidemia, unspecified
CPT/HCPCS: 36415; 80053; 80061; 85025

== ENCOUNTER 2021-03-19 17:43 | Emergency (ER) | payer OTHER, BC ==
[~2021-03-19] VITALS: Ht 162.6 cm; Wt 83.9 kg
[2021-03-19] MEDS ORDERED: SODIUM CHLORIDE 0.9% 1,000 ML IVB ONE (18:15)
[2021-03-19] MEDS ORDERED: ONDANSETRON HCL 4 MG/2 ML VIAL IV ONE (18:15)
[2021-03-19 18:59] LABS: Basophils # (auto) 0.1 10 ^3/uL (0-0.2); Basophils % (auto) 0.9 % (0.0-2.0); Eosinophils # (auto) 0.2 10 ^3/uL (0-0.8); Eosinophils % (auto) 3.6 % (0.0-7.0); Hematocrit 40.7 % (36.0-46.0); Hemoglobin 13.5 g/dL (12.2-16.2); Lymphocytes # (auto) 1.9 10 ^3/uL (0.4-5.4); Lymphocytes % (auto) 29.8 % (10.0-50.0); Mean Corpuscular Hemoglobin 30.4 pg (28.0-32.0); Mean Corpuscular Hgb Conc. 33.3 g/dL (32.0-36.0); Mean Corpuscular Volume 91.3 fL (80.0-100.0); Monocytes # (auto) 0.6 10 ^3/uL (0-1.3); Monocytes % (auto) 8.9 % (0.0-12.0); Neutrophils # (auto) 3.6 10 ^3/uL (1.6-8.6); Neutrophils % (auto) 56.8 % (37.0-80.0); Nucleated Red Blood Cells % 0.1 %; Red Blood Cells 4.46 10^6/uL (4.0-5.20); Red Cell Distribution Width 13.5 % (11.8-14.3); White Blood Cell 6.3 10^3/uL (4.4-10.8)
[2021-03-19 19:17] LABS: Albumin 3.2 g/dL (3.4-5.0); Potassium 4.1 mmol/L (3.5-5.1)
[2021-03-19 19:21] LABS: Bilirubin, Total 0.3 mg/dL (0.2-1.0); Total Protein 7.2 g/dL (6.4-8.2)
[2021-03-19] MEDS ORDERED: ONDA-144 PO (21:56)
[2021-03-19 22:20] VITALS: BP 102/60
== END 2021-03-20 00:02 | disposition home or self-care (01) ==
LOC: ER 17:47
DX: R10.30 Lower abdominal pain, unspecified (principal); R11.2 Nausea with vomiting, unspecified; R53.1 Weakness; Z20.822 Contact with and (suspected) exposure to COVID-19
CPT/HCPCS: 36415; 74176; 80053; 83690; 85025; 87426; 96361; 96374; 99284; J2405; J7030

== ENCOUNTER → 2021-06-16 | Outpatient (CLI) | payer OTHER, BC ==
[~2021-06-16] MED LIST changes: +ONDA-144 PO
== END | disposition home or self-care (01) ==
LOC: XYW 12:49
PROVIDERS: ATTEND Internal Medicine
DX: I47.1 Supraventricular tachycardia (principal); I10 Essential (primary) hypertension
CPT/HCPCS: 93306

== ENCOUNTER → 2022-03-09 | Outpatient (CLI) | payer BC, OTHER | END | disposition home or self-care (01) | LOC: XYW 14:43 | PROVIDERS: ATTEND Internal Medicine | DX: I49.5 Sick sinus syndrome (principal) | CPT/HCPCS: 93306 ==

== ENCOUNTER → 2022-03-16 | Outpatient (CLI) | payer OTHER ==
[2022-03-16 08:59] LABS: Basophils # (auto) 0 10 ^3/uL (0-0.2); Basophils % (auto) 0.3 % (0.0-2.0); Eosinophils # (auto) 0.3 10 ^3/uL (0-0.8); Eosinophils % (auto) 4.8 % (0.0-7.0); Hemoglobin 13.1 g/dL (12.2-16.2); Lymphocytes # (auto) 1.3 10 ^3/uL (0.4-5.4); Mean Corpuscular Hemoglobin 29.9 pg (28.0-32.0); Mean Corpuscular Hgb Conc. 32.6 g/dL (32.0-36.0); Mean Corpuscular Volume 91.7 fL (80.0-100.0); Monocytes # (auto) 0.5 10 ^3/uL (0-1.3); Monocytes % (auto) 9.3 % (0.0-12.0); Neutrophils # (auto) 3.7 10 ^3/uL (1.6-8.6); Neutrophils % (auto) 62.6 % (37.0-80.0); Nucleated Red Blood Cells % 0.1 %; Red Blood Cells 4.36 10^6/uL (4.0-5.20); Red Cell Distribution Width 15.9 % (11.8-14.3); White Blood Cell 5.9 10^3/uL (4.4-10.8)
[2022-03-16 09:12] LABS: Urine Bacteria NONE SEEN /hpf (None Seen); Urine Blood Negative /uL (Negative); Urine Mucus FEW (None Seen); Urine Specific Gravity 1.025 (1.001-1.035); Urine WBC 7 /hpf (0 - 5)
[2022-03-16 09:43] LABS: Albumin 3.1 g/dL (3.4-5.0); Calcium 8.6 mg/dL (8.5-10.1); Potassium 3.5 mmol/L (3.5-5.1)
[2022-03-16 09:53] LABS: Free T3 2.62 pg/mL (2.3-4.2); Free T4 (Free Thyroxine) 0.89 ng/dL (0.89-1.76)
[2022-03-16 10:01] LABS: BUN/Creatinine Ratio 27.9; Bilirubin, Total 0.3 mg/dL (0.2-1.0); Total Protein 6.8 g/dL (6.4-8.2)
== END | disposition home or self-care (01) ==
LOC: LAB 08:42
PROVIDERS: ATTEND Nurse Practitioner Acute Care
DX: I10 Essential (primary) hypertension (principal); F10.20 Alcohol dependence, uncomplicated
CPT/HCPCS: 36415; 80053; 80061; 81001; 82140; 82306; 82977; 83036; 84439; 84443; 84481; 85025

== ENCOUNTER → 2022-07-07 | Outpatient (CLI) | payer OTHER ==
[2022-07-07 12:47] LABS: Basophils # (auto) 0.1 10 ^3/uL (0-0.2); Basophils % (auto) 0.8 % (0.0-2.0); Eosinophils # (auto) 0.2 10 ^3/uL (0-0.8); Eosinophils % (auto) 2.4 % (0.0-7.0); Hemoglobin 13.8 g/dL (12.2-16.2); Lymphocytes # (auto) 1.9 10 ^3/uL (0.4-5.4); Lymphocytes % (auto) 28.3 % (10.0-50.0); Mean Corpuscular Hemoglobin 29.9 pg (28.0-32.0); Mean Corpuscular Hgb Conc. 32.9 g/dL (32.0-36.0); Mean Corpuscular Volume 90.8 fL (80.0-100.0); Monocytes # (auto) 0.4 10 ^3/uL (0-1.3); Monocytes % (auto) 5.8 % (0.0-12.0); Neutrophils # (auto) 4.2 10 ^3/uL (1.6-8.6); Neutrophils % (auto) 62.7 % (37.0-80.0); Red Blood Cells 4.63 10^6/uL (4.0-5.20); Red Cell Distribution Width 14.5 % (11.8-14.3); White Blood Cell 6.8 10^3/uL (4.4-10.8)
[2022-07-07 13:28] LABS: Albumin 3.3 g/dL (3.4-5.0); Potassium 4.1 mmol/L (3.5-5.1)
[2022-07-07 13:38] LABS: BUN/Creatinine Ratio 14.6 (10.0-20.0); Bilirubin, Total 0.3 mg/dL (0.2-1.0); Calcium 8.9 mg/dL (8.5-10.1); Total Protein 7.2 g/dL (6.4-8.2)
== END | disposition home or self-care (01) ==
LOC: LAB 12:30
DX: R19.7 Diarrhea, unspecified (principal); N39.0 Urinary tract infection, site not specified; F41.9 Anxiety disorder, unspecified; R73.03 Prediabetes
CPT/HCPCS: 36415; 80053; 80061; 83036; 84439; 84443; 85025; 87045; 87177; 87427; 87493

== ENCOUNTER → 2022-10-22 | Outpatient (CLI) | payer OTHER, MEDICAID ==
[~2022-10-22] MED LIST changes: +TRAZ-228 PO; -TRAZ100T3 PO
== END | disposition home or self-care (01) ==
LOC: LAB 14:15
DX: N39.0 Urinary tract infection, site not specified (principal)
CPT/HCPCS: 87086

== ENCOUNTER 2023-08-18 14:24 | Emergency (ER) | payer BC, OTHER ==
[~2023-08-18] VITALS: Ht 162.6 cm; Wt 137.8 kg
[2023-08-18] MEDS ORDERED: EPINEPHrine HCL 1 MG/10 ML SYRG IV ONE (14:25)
[2023-08-18] MEDS: SODIUM BICARB 8.4% 50Meq/50ml SYR Vial IV ONE (14:57)
[2023-08-18] MEDS: EPINEPHrine HCL 1 MG/10 ML SYRG ONE (14:58)
[2023-08-18 15:15] VITALS: PULSE 65
[2023-08-18 15:51] VITALS: BP 111/81; PULSE 56; RESP 16
[2023-08-18] MEDS: NOREPINEPHRINE 8 MG/250ML KIT 250 ML IV ONE (16:05)
[2023-08-19] MEDS ORDERED: DOPamine 1600MCG/ML D5W 250 ML IV ONE (10:00)
== END 2023-08-18 16:10 | disposition short-term general hospital (02) ==
LOC: EDBD 14:24 → ER 14:24
DX: S52.91XA Unspecified fracture of right forearm, initial encounter for closed fracture (principal); S52.291A Other fracture of shaft of right ulna, initial encounter for closed fracture; S82.291A Other fracture of shaft of right tibia, initial encounter for closed fracture; S27.322A Contusion of lung, bilateral, initial encounter; I46.9 Cardiac arrest, cause unspecified; I50.9 Heart failure, unspecified; F32.9 Major depressive disorder, single episode, unspecified; E78.5 Hyperlipidemia, unspecified; I95.9 Hypotension, unspecified; Z98.890 Other specified postprocedural states; Z87.891 Personal history of nicotine dependence; Z79.899 Other long term (current) drug therapy; V89.2XXA Person injured in unspecified motor-vehicle accident, traffic, initial encounter; Y93.I9 Activity, other involving external motion; Y92.89 Other specified places as the place of occurrence of the external cause; Y99.8 Other external cause status
CPT/HCPCS: 31500; 71045; 92950; 99285; J0171